=== PATIENT | female | born 1945 | race Caucasian/White ===

== ENCOUNTER 2025-08-12 19:53 | Emergency (ER) | payer OTHER, MEDICAID ==
[~2025-08-12] VITALS: Ht 154.9 cm; Wt 111.3 kg
--- NOTE | 2025-08-12 21:32 | ED.PDOC ---
History of Present Illness(SKN HPI Comments This is a 80 year-old female who presents to the ED with a chief complaint of bump to the L side of the face. Patient reports the bump appeared spontaneously, no trauma or injury to the area. Patient has no further complaints or modifying factors at this time and otherwise denies redness, itchiness, N/V/D, fever, or chills. Chief Complaint: Face pain Time Seen by MD: 20:25 History of Present Illness: Medications, Allergies Allergies: Coded Allergies: NO KNOWN ALLERGIES (Unverified , 08/12/25) Information Source: Patient Mode of Arrival: Ambulatory Severity: Moderate Duration: Since onset Prehospital treatment: None Mechanism: Spontaneous Onset Past Medical History PAST MEDICAL HISTORY: Denies Surgical History: Denies all surgeries SOCIAL MEDIA COORDINATOR History: No Pertinent SOCIAL MEDIA COORDINATOR History Family History Family History: Reviewed,noncontributory to illness, No family hx of Cancer, No family hx of DM, No family hx of Heart camille, No family hx of HTN, No family hx ofKidney camille, No family hx of Liver camille, No family hx of Lung camille, No family hx of Stroke Social History Smoker: Non-Smoker Alcohol: Denies ETOH Use Drugs: Denies Drug Use Lives In: Home Constitutional: denies: chills, diaphoresis, fatigue, fever, malaise, sweats, weakness, others EENTM: denies: blurred vision, double vision, ear bleeding, ear discharge, ear drainage, ear pain, ear ringing, eye pain, eye redness, hearing loss, mouth pain, mouth swelling, nasal discharge, nose bleeding, nose congestion, nose pain, photophobia, tearing, throat pain, throat swelling, voice changes, others Respiratory: denies: cough, hemoptysis, orthopnea, SOB at rest, shortness of breath, SOB with excertion, stridor, wheezing, others Cardiovascular: denies: chest pain, dizzy spells, diaphoresis, Dyspnea on exertion, edema, irregular heart beat, left arm pain, lightheadedness, pal pitations, PND, syncope, others Gastrointestinal: denies: abdomen distended, abdominal pain, blood streaked bowels, constipated, diarrhea, dysphagia, difficulty swallowing, hematemesis, melena, nausea, poor appetite, poor fluid intake, rectal bleeding, rectal pain, vomiting, others Genitourinary: denies: abnormal vagina bleeding, burning, dyspareunia, dysuria, flank pain, frequency, hematuria, incontinence, pain, , vagina discharge, urgency, others Neurological: denies: dizziness, fainting, headache, left sided numbness, left sided weakness, numbness, paresthesia, pre-existing deficit, right sided numbness, right sided weakness, seizure, speech problems, tingling, tremors, weakness, others Musculoskeletal: denies: back pain, gout, joint pain, joint swelling, muscle pain, muscle stiffness, neck pain, others Integumetry: reports: others (bump to face ); denies: bruises, change in color, change in hair/nails, dryness, laceration, lesions, lumps, rash, wounds Allergic/Immunocompromised: denies: Difficulty Healing, Frequent Infections, Hives, Itching, others Hematologic/Lymphatic: denies: anemia, blood clots, easy bleeding, easy bruising, swollen glands, others Endocrine: denies: excessive hunger, excessive sweating, excessive thirst, excessive urination, flushing, intolerance to cold, intolerance to heat, unexplained weight gain, unexplained weight loss, others Psychiatric: denies: anxiety, bipolar disorder, depression, hopeless, panic disorder, schizophrenia, sleepless, suicidal, others All Other Systems: Reviewed and Negative Physical Exam General Appearance: No Apparent Distress, Normal HEENT: Head (Left-sided facial swelling tenderness on palpation no noted warmth or erythema no noted open lesions or drainage.), Pharynx Normal, TMs Normal Neck: Full Range of Motion, Non-Tender Respiratory: Chest Non-Tender, Lungs Clear, No Accessory Muscle Use, No Respiratory Distress, Normal Breath Sounds Cardiovascular: No Edema, No JVD, No Murmur, No Gallop, Normal Peripheral Pulses, Regular Rate/Rhythm Breast Exam: Deferred Gastrointestinal: No Organomegaly, Non Tender, No Pulsatile Mass, Normal Bowel Sounds, Soft Genitalia: Deferred Pelvic: Deferred Rectal: Deferred Extremities: No calf tenderness, Normal capillary refill, Normal inspection, Normal range of motion, Non-tender, No pedal edema Musculoskeletal : Apperance: Normal Neurologic: Alert, No Motor Deficits, Normal Affect, Normal Mood, No Sensory Deficits Cerebellar Function: Normal Reflexes: NOT DONE Skin: Dry, Normal Color, Warm Lymphatic: No Adenopathy Was a procedure done? Was a procedure done?: No Differential Diagnosis (INTG) Differential Diagnosis: Cellulitis, Insect Envenomation, Puncture Wound X-Ray, Labs, Meds, VS Vital Signs Date Time Temp Pulse Resp B/P (MAP) Pulse Ox O2 Delivery O2 Flow Rate FiO2 08/12/25 23:25 97.9 81 17 144/81 (102) 97 97.9 08/12/25 23:25 81 17 97 Room Air 08/12/25 20:14 98.2 95 18 107/60 98.2 Current Medications Medications (Trade) Dose Ordered Sig/Devon Route Start Time Stop Time Status Last Admin Acetaminophen/ Hydrocodone Bitart ([place] 5/325MG Tab) 1 tab ONCE ONCE PO 08/12/25 23:15 08/12/25 23:16 DC 08/12/25 23:24 X-Ray, Labs, Meds, VS Comment Multiple left parotid nodules, presumably abnormal lymph nodes.Suggest a short- term follow-up ultrasound in 4-6 weeks for reassessment. Patient to follow up with PCP for six weeks for repeat ultrasound. Precautions given patient indicates understanding agrees with discharge plan of care. Images Reviewed?: Images reviewed and evaluated by me Time of 1ST Reevaluation: 21:00 Reevaluation 1ST: Unchanged Time of 2ND Reevaluation: 00:11 Reevaluation 2ND: Improved Patient Education/Counseling: Diagnosis, Treatment, Need For Follow Up Family Education/Counseling: No Family Present SEPSIS Sepsis Screen Date sepsis recognized/suspect: Aug 12, 2025 Time Sepsis recognized/suspect: 2016 Recent Procedure: No On Antibiotic Therapy: No Respiratory Rate >20: No Heart Rate >90: No Temp<36 C (96.8 F) or >38.3 C: No SBP <90 or MAP <65 mmHG: No New Acute Mental Status Change: No Is the patient on CPAP, BIPAP,: No Physician Orders Maxillofacial Without (08/12/25 23:03) Vital Signs Date Time Temp Pulse Resp B/P (MAP) Pulse Ox O2 Delivery O2 Flow Rate FiO2 08/12/25 23:25 97.9 81 17 144/81 (102) 97 97.9 08/12/25 23:25 81 17 97 Room Air 08/12/25 20:14 98.2 95 18 107/60 98.2 Medications Medications Dose Ordered Sig/Devon Route Start Time Stop Time Status Last Admin Dose Admin Acetaminophen/ Hydrocodone Bitart 1 tab ONCE ONCE PO 08/12/25 23:15 08/12/25 23:16 DC 08/12/25 23:24 Departure 1 Departure Time of Disposition: 00:11 Impression: Primary Impression: Parotid nodule Disposition: 01 HOME / SELF CARE / HOMELESS Condition: Stable Additional Instructions: Multiple left parotid nodules, presumably abnormal lymph nodes.Suggest a short- term follow-up ultrasound in 4-6 weeks for reassessment. Discharged With: Friend Critical Care Note Critical Care Time?: No Stability Stability form required: No I personally scribed for ER ([email or web address]) on 08/12/25 at 21:32. Electronically submitted by Jenna Rivera ([facility]). ER Aug 12, 2025 21:32 ADILIA WICK [employer] SOFTWARE ENGINEER Aug 12, 2025 23:03
[2025-08-12] MEDS: HYDROcodone-ACET 5/325MG TAB PO ONE (23:24)
[2025-08-12 23:25] VITALS: BP 144/81; PULSE 81; RESP 17; TEMP 97.9; O2SAT 97
--- NOTE | 2025-08-12 23:36 | DVH ---
HISTORY: left side facial swelling TECHNIQUE: Nonenhanced axial images through the facial bones with coronal and sagittal MPR. Radiation Dose Information: CT Dose: CTDI volume is 66.65 mGy. Dose-length product is 1374.56 mGy*cm COMPARISON: None FINDINGS: Suboptimal assessment without contrast. Multiple enlarged nodules within the left parotid gland measuring up to 2.2 cm, presumably lymph node s. Underlying parotid and submandibular glands otherwise appear unremarkable. No dilated ducts. No s ignificant inflammatory changes. Bones are unremarkable. Paranasal sinuses and mastoid air cells are clear. Visualized portions of the brain are unremarkable IMPRESSION: Multiple left parotid nodules, presumably abnormal lymph nodes. Suggest a short-term follow-up ultrasound in 4-6 weeks for reassessment. Radiation optimization: All CT scans at this facility use at least one of these dose optimization thomas hniques: automated exposure control mA and/or kV adjustment per patient size (includes targeted exam s where dose is matched to clinical indication) or iterative reconstruction.
== END 2025-08-13 00:25 | disposition home or self-care (01) ==
LOC: ER 19:53
DX: K11.8 Other diseases of salivary glands (principal)
CPT/HCPCS: 70486